=== PATIENT | male | born 1995 | race Caucasian/White ===

== ENCOUNTER 2023-11-22 18:03 | Emergency (ER) | payer BC, SELFPAY ==
[2023-11-22 18:16] VITALS: BP 163/95
--- NOTE | 2023-11-22 21:39 | ED.SKININJ ---
HPI-Injury
General
Chief Complaint: Skin Surface Trauma
Source: patient
Exam Limitations: none
Time Seen by Provider: 11/22/23 18:44
Nursing documentation reviewed up to this point in time: agreed with
History of Present Illness-Injury
Is this injury a work related problem?: No
Is pt an associate of [facility]/[place]?: No
Initial Injury comments:
States he was chopping wood with an axe. Axe came off handle and hit his wrist. Sustained a small alceration to his right wrist. Injury occurred just [employer].
Past History
Past History
ED Past Medical History: None
ED Past Surgical History: None
Review of Systems
Review of Systems
Allergies reviewed?: Yes
All Other Systems: ROS reviewed and negative except as documented in HPI and ROS
Constitutional: Reports no symptoms
Musculoskeletal: Reports no symptoms
Skin: Reports no symptoms (laceration to right wrist.)
Neurological: Reports no symptoms
Psychiatric: Reports no symptoms
Skin Exam
Laceration
Right Wrist:
Length in cm: 1
Orientation: diagonal
Type of Laceration: simple
Any active bleeding?: no active bleeding
Distal skin color and temperature: normal-warm & good color
Normal distal neurovascular exam: Yes
Range of motion: full
Phy Exam
General Physical Exam
General Presentation: well appearing and no apparent distress
General age: appears stated age
General Skin: warm and dry
General Habitus: normal
General Mental: alert
Musculoskeletal Exam
Musculoskeletal Exam: full ROM
Skin Exam
Skin Exam: normal color, warm/dry and no rash
Psychiatric Exam
Psychiatric Exam: normal mood/affect
Course
Vital Signs
Initial and Last Documented VS:
Initial Vital Signs
Temp Pulse Resp BP Pulse Ox
98.5 F 90 16 163/95 98
11/22/23 18:16 11/22/23 18:16 11/22/23 18:16 11/22/23 18:16 11/22/23 18:16
Last Documented Vital Signs
Temp Pulse Resp BP Pulse Ox
98.5 F 90 18 163/95 99
11/22/23 18:16 11/22/23 19:40 11/22/23 19:40 11/22/23 18:16 11/22/23 19:40
Procedures
Laceration Closure
Right Wrist:
Status of Wound: clean
Description of Wound Edges: sharp
Preparation: cleaned with saline and cleaned with Betadine
Anesthesia: 1% Lidocaine
Revision/Debridement: routine- no revision
Wound exploration: explored to base- no FB
Type of Closure: single layer closure
Skin Closure Material: 4-0 prolene
Number of sutures: 3
*Critical Care Note
Total Time (30-74mins, 75-104mins- exclusive of procedures): Not Applicable
ED Attending Note
-
Portions of this chart may have been created with voice recognition software.� Occasional wrong word or��sound alike� substitutions may have occurred due to the inherent limitations of voice recognition software.
Discharge Plan
Departure
Patient Disposition: Home (Routine Discharge)
Date of Disposition: 11/22/23
Time of Disposition: 19:13
Patient with high blood pressure during this ER visit?: No
Condition: Good
Covid-19: Not Applicable
Discharge Problem:
Laceration of wrist
Instructions: Laceration Repair With Stitches (DC)
Referrals:
NONE,* [Family Provider] -
Activity Restrictions/Additional Instructions:
Sutures can be removed by your family doctor in 7-10 days.
Interventions
Interventions:
*Risk Screen - Suicide Last Done: 11/22/23 19:40
*General Assessment Last Done: 11/22/23 19:40
*Neglect/Abuse Screening Last Done: 11/22/23 19:40
ED- Fall Risk Assessment Last Done: 11/22/23 19:40
*ED COVID-19 Vaccine History Last Done: 11/22/23 19:42
*Nursing Disposition Last Done: 11/22/23 19:40
ED-Skin Assessment Last Done: 11/22/23 18:37
Discharge Date and Time
Discharge Date/Time: 11/22/23 19:42
Print Language: PORTUGUESE
== END 2023-11-22 19:42 | disposition home or self-care (01) ==
LOC: EMR 18:03
PROVIDERS: EMERGENCY PHYSICIAN Emergency Medicine
DX: S61.511A Laceration without foreign body of right wrist, initial encounter (principal); W27.0XXA Contact with workbench tool, initial encounter
CPT/HCPCS: 99282; 12002

== ENCOUNTER 2023-12-19 15:52 | Emergency (ER) | payer BC, SELFPAY ==
[2023-12-19 16:01] VITALS: BP 152/97
--- NOTE | 2023-12-19 17:08 | ED.MUSCINJ ---
HPI-Injury
General
Chief Complaint: Musculo-Skeletal Complaint
Source: patient
Time Seen by Provider: 12/19/23 16:55
History of Present Illness-Injury
Initial Injury comments:
28yoM with no significant past medical history presenting with his for evaluation after a left knee injury about 5 hours ago. Patient was at his friend's house participating in [employer]. He was in a relay race and he pivoted to change
positions when his left knee turned inward and he felt a pop. He has been having pain in the lateral knee since the injury and has been unable to bear weight. No paresthesias. He denies other concerns.
Past History
Past History
ED Past Medical History: None
ED Past Surgical History: None
Phy Exam
Physical Exam
Physical Exam:
Left knee: No deformity. Knee effusion present. +Lateral joint line tenderness. Overlying skin intact. ROM decreased 2/2 pain but patient able to flex to about 90 degrees. 2+ DP pulse and sensation intact.
General Physical Exam
General Presentation: well appearing and no apparent distress
General age: appears stated age
General Skin: warm and dry
Injury Course
Orders/Labs/Results
Orders:
Orders
12/19/23 16:04
Knee, Left 4 or More Views [CR Knee - Left 4 Or More View*] Urgent
Comment:
Reason For Exam: pain injury
12/19/23 17:10
Crutches-Treatment ONCE
Knee Immobilizer Left-Treatmen ONCE
Acetaminophen [Tylenol] 1,000 mg PO NOW STA
MDM/Problems Addressed
Differential Diagnosis Includes:
28yoM here with L knee pain after an injury. Effusion noted on exam with lateral joint line tenderness. LLE is neurovascularly intact. Differential diagnosis includes but is not limited to: Fracture, dislocation, ligamentous injury
X-rays obtained which show a suspected lateral femoral condyle fracture. Case was discussed with orthopedics, Dr. Clarke, who recommends NWB and knee immobilizer. Findings and recommendations discussed with patient and supportive care discussed.
Advised close outpatient f/u with orthopedics for further care. He was discharged in stable condition.
*Critical Care Note
Total Time (30-74mins, 75-104mins- exclusive of procedures): Not Applicable
ED Attending Note
-
Portions of this chart may have been created with voice recognition software.� Occasional wrong word or��sound alike� substitutions may have occurred due to the inherent limitations of voice recognition software.
Discharge Plan
Departure
Patient Disposition: Home (Routine Discharge)
Date of Disposition: 12/19/23
Time of Disposition: 17:16
Patient with high blood pressure during this ER visit?: Yes
Discharge Problem:
Closed fracture of lateral condyle of distal end of left femur
Instructions: Femur Fracture ED
Referrals:
Nelson Clarke MD [Active] -
UNKNOWN - PT DOES,NOT KNOW [Family Provider] -
Activity Restrictions/Additional Instructions:
Wear knee immobilizer and do not bear weight until seen by orthopedics.
Rest, ice, and elevate to help with swelling. Take Tylenol and ibuprofen for pain.
Please call on Thursday to schedule a follow-up with orthopedics.
Interventions
Interventions:
*Risk Screen - Suicide Last Done: 12/19/23 16:24
*General Assessment Last Done: 12/19/23 16:24
*Neglect/Abuse Screening Last Done: 12/19/23 16:24
ED- Fall Risk Assessment Last Done: 12/19/23 16:24
*ED COVID-19 Vaccine History Last Done: 12/19/23 16:24
*Nursing Disposition Last Done: 12/19/23 17:39
ED-Musculoskeletal Assessment Last Done: 12/19/23 16:24
Discharge Date and Time
Discharge Date/Time: 12/19/23 18:14
Print Language: MAORI
[2023-12-19] MEDS: TYLENOL 1000 MG PO (17:33)
== END 2023-12-19 18:14 | disposition home or self-care (01) ==
LOC: EMR 15:52
PROVIDERS: EMERGENCY PHYSICIAN Emergency Medicine
DX: S72.422A Displaced fracture of lateral condyle of left femur, initial encounter for closed fracture (principal); X58.XXXA Exposure to other specified factors, initial encounter
CPT/HCPCS: 99283; 29505; 73564